=== PATIENT | female | born 1980 | race Caucasian/White ===

== ENCOUNTER 2019-07-23 16:17 | Emergency (ER) | payer OTHER, SELFPAY ==
--- NOTE | ~2019-07-23 | XR_ITS ---
EXAMINATION: XR chest 2V EXAM DATE: 07/23/2019 16:53 INDICATION: Cough and fever. TECHNIQUE: Frontal and lateral projections of the chest obtained and reviewed. There is no prior alejandro dy for comparison. FINDINGS: Patchy multilobar left lower lobe pneumonia. No pleural effusion or pneumothorax. Cardiome diastinal silhouette is normal. There are no osseous abnormalities identified. IMPRESSION: 1. Patchy multifocal left lower lobe pneumonia. Reviewed, dictated and finalized at location A. [facility] [employer]
[2019-07-23 16:33] VITALS: BP 121/67; PULSE 94; RESP 20; TEMP 38.8; O2SAT 99
--- NOTE | 2019-07-23 16:35 | ED.GENADULT ---
HPI - General Adult General Chief complaint: Upper Respiratory Infection Stated complaint: fever/cough/body aches/congestion Time Seen by Provider: 07/23/19 16:35 Source: patient and RN notes reviewed Mode of arrival: ambulatory Limitations: no limitations History of Present Illness HPI narrative: 38-year-old female presents with complains of upper respiratory infection symptoms, decrease appetite, fever, cough, congestion, intermittent dyspnea, and intermittent headache (not the worst of her life) for 4 days. Ibuprofen (last this morning at 05:30) and Robitussin (second dose today, last today at 14:00) with some relief. Constant dry cough and intermittent productive cough (yellow phlegm). Cough worse with laying down. Chest congestion. Rhinorrhea and nasal congestion. Denies sore throat. No drooling, neck or throat swelling. High fevers, as high as 102.6, orally. No chest pain or wheezing. No exacerbation factors. Denies nausea, vomiting, and abdominal pain. Tolerating liquids well. Huyen denies being , LMP currently started on 07/18/2019. Some parts of this dictation were generated by voice recognition software and may contain typographical and/or grammatical inaccuracies. Related Data Allergies Allergy/AdvReac Type Severity Reaction Status Date / Time No Known Allergies Allergy Verified 07/23/19 16:34 Review of Systems Review of Systems: Narrative: CONSTITUTIONAL: Complains of fever. Denies chills, sweats. EYES: Denies visual changes, redness, discharge. ENT: Complains of rhinorrhea, congestion. Denies sore throat, otalgia. CARDIOVASCULAR: Denies chest pain, palpitations, edema. RESPIRATORY: Denies dyspnea, wheezing. Complains of dry cough, intermittent productive cough. GASTROINTESTINAL: Denies abdominal pain, nausea, vomiting, diarrhea. Complains decreased appetite. GENITOURINARY: Denies dysuria, hematuria, abnormal discharge. SKIN: Denies rash or itching. MUSCULOSKELETAL: Denies acute back pain, joint pain, or myalgia. NEUROLOGIC: Denies numbness or focal weakness. Complains of intermittent headache. PSYCHIATRIC: Denies anxiety or depression. All systems reviewed & are unremarkable except as noted in HPI and below PMFSH Past Medical History Medical History (Updated 07/24/19 @ 00:00 by Background Daemon) delivery delivered X2 Psoriasis Social History Social History Smoking status: Never smoker Alcohol intake: current Comments At time of signature, agree with nurse past medical, surgical, social, and family history. There is no relevant family history pertinent to the presenting complaint. Exam Narrative: Exam Narrative: GENERAL: This is a well-nourished, well-developed patient, in no apparent distress. Talks in full sentences and ambulates with steady gait without dyspnea. HEAD: normocephalic, atraumatic. EYES: PERRL. Sclera clear/white. Vision is grossly intact. EARS: External ears normal, auditory canals clear and without drainage, TMs normal without perforation. Hearing grossly intact. NOSE: External nose normal with no obvious nasal discharge, nares with moderate redness and enlarged turbinates, clear rhinorrhea. THROAT: Mucous membranes moist, posterior pharynx clear. No erythema, tonsils normal. NECK: Neck supple, non-tender without lymphadenopathy, masses or thyromegaly. CARDIOVASCULAR: Regular rate and rhythm without murmurs, gallops, or rubs. RESPIRATORY: Clear to auscultation. Breath sounds equal bilaterally. No wheezes, rales, or rhonchi. Harsh dry cough. GASTROINTESTINAL: Abdomen soft, non-tender, nondistended. Bowel sounds are active. No hepato-splenomegaly, or palpable masses. No guarding. SKIN: warm, intact with no suspicious lesions or rash, good texture and turgor. NEURO: awake, alert, and oriented to person, place and time. There were no obvious focal neurologic abnormalities. EXTREMITIES: No clubbing, c
[2019-07-23 16:44] VITALS: TEMP 38.8
[2019-07-23] MEDS: IBUPROFEN 600 MG TABLET PO (16:44)
[2019-07-23 17:15] VITALS: TEMP 39.1
--- NOTE | 2019-07-23 17:17 | PC.NURSE ---
pt aware temp has went up offered tylenol and to stay longer to re-evaluate her temperature. Pt declined stating she wanted to go home and would take tylenol there and re check temp.
[2019-07-23 17:18] VITALS: TEMP 39.1
== END 2019-07-23 17:18 | disposition home or self-care (01) ==
PROVIDERS: Emergency Provider Nurse Practitioner Family; PCP Internal Medicine
DX: J18.9 Pneumonia, unspecified organism (principal)
CPT/HCPCS: 71046; 87804; 99213; A9270; G0463

== ENCOUNTER → 2023-07-19 14:57 | Outpatient (CLI) | payer OTHER, SELFPAY ==
--- NOTE | ~2023-07-19 | MM_ITS ---
EXAMINATION: MM screening megan BI w karine HISTORY: Screening TECHNIQUE: Craniocaudal and mediolateral oblique 3-D tomosynthesis images were obtained and synthetic 2-D images were generated. CAD analysis was submitted and interpreted. COMPARISON: 09/21/2016 BREAST PARENCHYMAL COMPOSITION: The breasts are extremely dense, which lowers the sensitivity of mamm ography FINDINGS: There is no evidence of suspicious mass, calcification, or architectural distortion to sugg est malignancy in either breast. There has been no suspicious interval change. IMPRESSION: 1. No mammographic evidence of malignancy. 2. Recommend routine screening mammography in one year. BI-RADS Category 1: Negative Reviewed, dictated and finalized at location A. REPAIRER
== END ==
PROVIDERS: PCP Obstetrics & Gynecology; Visit Provider Obstetrics & Gynecology
DX: Z12.31 Encounter for screening mammogram for malignant neoplasm of breast (principal)
CPT/HCPCS: 77063; 77067